=== PATIENT | female | born 1955 | race Caucasian/White ===

== ENCOUNTER 2016-12-20 09:39 | Outpatient (CLI) | payer OTHER ==
--- NOTE | 2016-12-22 12:12 | Mammography Report ---
DIGITAL BILATERAL SCREENING MAMMOGRAM: 12/20/2016 HISTORY: Asymptomatic 61-year-old female, indwelling saline implants. COMPARISON: 11/2012 TECHNIQUE: Bilateral CC, MLO and displaced views obtained. FINDINGS: Scattered fibroglandular tissue is present. No developing mass, distortion or pleomorphic calcifications. Bilateral indwelling implants are unchanged. ASSESSMENT: NEGATIVE. RECOMMENDATION: Routine screening is recommended annually. BIRADS category 1 - negative. STANDARD QUALIFYING STATEMENTS 1. This examination was reviewed with the aid of Computed-Aided Detection (CAD). 2. A negative or benign imaging report should not delay biopsy if clinically suspicious findings are present. Consider surgical consultation if warranted. More than 5% of cancers are not identified b y imaging. 3. Dense breasts may obscure an underlying neoplasm. JOB #: [id number] EXT JOB #:[id number]
== END 2016-12-20 09:40 | disposition home or self-care (01) ==
LOC: DI 09:39
PROVIDERS: ATTEND Internal Medicine
DX: Z12.31 Encounter for screening mammogram for malignant neoplasm of breast (principal); Z98.82 Breast implant status
CPT/HCPCS: 77067

== ENCOUNTER 2018-02-07 13:35 | Outpatient (CLI) | payer OTHER ==
[2018-02-07] MEDS ORDERED: IOPAMIDOL-300 100 ML VIAL ONE (13:45)
[2018-02-07] MEDS ORDERED: IOPAMIDOL-300 50 ML VIAL ONE (13:45)
[2018-02-07 14:11] LABS: CREATININE 0.7 mg/dL (0.4-1.0)
--- NOTE | 2018-02-07 16:15 | CT Report ---
Reason: DIARRHEA, ABD PAIN BLOATING, DYSURIA, BACK PAIN Procedure Date: 02/07/2018 Accession Number: [id number] / [id number] Procedure: CT - Abdomen/Pelvis W/ CPT Code: FULL RESULT: EXAM: CT ABDOMEN AND PELVIS EXAM DATE: 02/07/2018 03:29 PM. CLINICAL HISTORY: DIARRHEA, ABD PAIN BLOATING, DYSURIA, BACK PAIN. COMPARISONS: None. TECHNIQUE: Routine helical CT imaging was performed through the abdomen and pelvis. IV contrast: ISOVUE 300 100mL. Enteric contrast: No. Reconstructions: Coronal and sagittal. In accordance with CT protocol optimization, one or more of the following dose reduction techniques were utilized for this exam: automated exposure control, adjustment of mA and/or KV based on patient size, or use of iterative reconstructive technique. FINDINGS: Lung Bases: Subsegmental bibasilar atelectasis, greatest in right lower lobe posterior medially. Liver: Normal. No masses. Gallbladder/Bile Ducts: Unremarkable. Spleen: Unremarkable Pancreas: Unremarkable Adrenal Glands: Unremarkable Kidneys: Bilateral mild pelvocaliectasis. No radiopaque stone. Normal enhancement. No significant mass. Peritoneal Cavity/Bowel: Large volume of stool mixed with air throughout the colon from rectum through cecum. Mild cecal distention measuring up to 8 cm in diameter. No bowel obstruction. Appendix not seen. Stomach and small bowel appear unremarkable. No free intraperitoneal air. No free fluid. No adenopathy. Pelvic Organs: Postop change from hysterectomy. Urinary bladder unremarkable. No adnexal masses seen. Vasculature: No aneurysms or other significant abnormality. Bones: Lumbar postop change from fusion at L4-L5. No acute bone abnormality. No bone lesion suspicious for malignancy. Other: None. IMPRESSION: 1. Large volume of stool and air throughout the colon with mild cecal distention. No bowel obstruction. No gross wall thickening or inflammatory changes. No pneumatosis. No free fluid or free air. 2. No acute abdominal or pelvic abnormality otherwise seen on CT scan. Exam as detailed above. RADIA
[2018-02-07] MEDS ORDERED: IOPAMIDOL-300 50 ML VIAL PO ONE (17:15)
[2018-02-07] MEDS ORDERED: IOPAMIDOL-300 100 ML VIAL IVP ONE (17:15)
== END 2018-02-07 13:36 | disposition home or self-care (01) ==
LOC: LAB 13:35 → DI 13:36
PROVIDERS: ATTEND Nurse Practitioner Family
DX: M54.9 Dorsalgia, unspecified (principal); R19.7 Diarrhea, unspecified; R30.0 Dysuria; R14.0 Abdominal distension (gaseous)
CPT/HCPCS: 36415; 74177; 82565; Q9967

== ENCOUNTER 2018-04-05 10:16 | Day surgery (SDC) | payer MEDICARE, OTHER ==
[~2018-04-05 10:16] MED LIST: BRIMONIDINE 0.2% OPHTH DROPS 5 ML ONE; BSS/LIDOCAINE/EPINEPHRINE 1 ML SYRINGE ONE; TIMOLOL 0.5% OPHTH DROPS ONE; TRIAMCIN/MOXIFLOX OPHTHALMIC 0.6 ML VIAL IO ONE; VANCOMYCIN OPHTHALMI 8MG/0.8ML 8 MG/0.8 ML SYRINGE IO ONE
[2018-04-05] MEDS ORDERED: PHENYLEPHRINE 2.5% OPHTH 2 ML DROPS ONE (10:55)
[2018-04-05] MEDS ORDERED: KETOROLAC 0.45% OPHTH DROPS ONE (10:55)
[2018-04-05] MEDS ORDERED: PROPARACAINE 0.5% OPHTH DROPS 15 ML ONE ×2 (10:56→11:19)
[2018-04-05] MEDS ORDERED: CYCLOPENTOLATE 1% OPHTH DROPS 2 ML ONE (10:56)
--- NOTE | 2018-04-05 11:14 | ANESTHESIA ---
Pre-Anesthesia VS, & Labs - Diagnosis L senile combined cataract - Procedure L extraction cataract with IOL - NPO >8 hours - Is Patient ?: No Anes History & Medical History - Anesthetic History Anesthesia Complications: reports: No previous complications Family history of Anesthesia Complications: Denies Family history of Malignant Hyperthermia: Denies - Surgical History Eyes Ears Nose Throat (EENT): Tonsil/Adenoidectomy Gynecologic: Hysterectomy Exam General: Alert, Oriented x3, Cooperative Dental: WNL Mouth Opening: Greater than 4 Fingerbreadths Neck Mobility: Normal Mallampati classification: I Thyromental Distance: 4-6 cm Respiratory: Lungs clear, Normal breath sounds Cardiovascular: Regular rate Neurological: Normal speech Mental/Cognitive Status: Alert/Oriented X3, Normal for patient Plan Anesthesia Type: MAC Consent for Procedure(s) Verified and Reviewed: Yes Code Status: Attempt Resuscitation ASA classification: 2-Mild systemic disease Is this case an emergency?: No
[2018-04-05] MEDS ORDERED: CYCLOPENTOLATE 1% OPHTH DROPS 2 ML LEFTEYE ONE (11:25)
[2018-04-05] MEDS ORDERED: PHENYLEPHRINE 2.5% OPHTH 2 ML DROPS LEFTEYE ONE (11:25)
[2018-04-05] MEDS ORDERED: PROPARACAINE 0.5% OPHTH DROPS 15 ML LEFTEYE ONE ×2 (11:25→11:49)
[2018-04-05] MEDS ORDERED: KETOROLAC 0.45% OPHTH DROPS LEFTEYE ONE (11:25)
[2018-04-05] MEDS ORDERED: LACTATED RINGERS 1,000 ML IV ONE ×2 (11:36→11:38)
[2018-04-05] MEDS ORDERED: BRIMONIDINE 0.2% OPHTH DROPS 5 ML OPTH ONE (11:48)
[2018-04-05] MEDS ORDERED: CHONDR SULF/HYALURONATE SYRINGE IO ONE (11:48)
[2018-04-05] MEDS ORDERED: EPINEPHrine 1 MG/ML AMP IVP ONE (11:48)
[2018-04-05] MEDS ORDERED: TIMOLOL 0.5% OPHTH DROPS OPTH ONE (11:48)
[2018-04-05] MEDS ORDERED: TRIAMCIN/MOXIFLOX OPHTHALMIC 0.6 ML VIAL IO ONE ×2 (11:49)
[2018-04-05] MEDS ORDERED: BSS/LIDOCAINE/EPINEPHRINE 1 ML SYRINGE IO ONE ×2 (11:49)
[2018-04-05] MEDS ORDERED: MIDAZOLAM 2 MG/2 ML VIAL IVP ONE (12:00)
[2018-04-05 12:03] VITALS: BP 114/65
--- NOTE | 2018-04-05 12:23 | OPERATIVE REPORT ---
DATE OF SERVICE: 04/05/2018 Physician: Lukas Giordano MD PREOPERATIVE DIAGNOSIS: Visually significant cataract, left eye. This was her first cataract surgery. POSTOPERATIVE DIAGNOSIS: Visually significant cataract, left eye. PROCEDURE: Phacoemulsification with posterior chamber intraocular lens implant, left eye. SURGEON: Dr. Lukas Giordano. ANESTHESIA: Monitored anesthesia care. COMPLICATIONS: None. INDICATIONS FOR PROCEDURE: This is a 63-year-old woman with progressive vision loss in the left eye due to 1-2+ nuclear sclerotic and 3+ cortical cataract. Best corrected visual acuity was 20/30 with glare to 20/80 in the left eye. Indications for surgery are overall decrease in vision, difficulty seeing words, closed captions or g ace scores on TV, difficulty seeing street signs, difficulty driving in low light or at night, diffic ulty driving at night because of headlights from other vehicles and/or street lights, and difficulty with glare or bright lights in any situation. She was consented at length concerning the risks and b enefits of cataract surgery, after which she expressed a desire to proceed with surgery. OPERATIVE PROCEDURE: Patient was taken into OR #3 and placed under monitored anesthesia care. A brody gical timeout was conducted confirming correct patient, correct procedure, and correct surgical site. She was given topical anesthesia, then prepped and draped in the usual sterile fashion. The eye was entered at the 6 and 3 o'clock positions. Intracameral Shugarcaine was injected into the anterior chamber, followed by Viscoat. A continuous-tear curvilinear capsulorrhexis was performed. The nucleus was hydrodissected and phacoemulsified. The cortex was evacuated using automated infusi on and aspiration. Provisc was injected in the capsular bag, and a 22.0 diopter intraocular lens ins erted in the bag. Approximately 0.8 mL of a mixture of triamcinolone, moxifloxacin, and vancomycin w as injected subconjunctivally in the superior quadrant for infection and inflammation prophylaxis. I and A was used to evacuate the viscoelastic materials. The eye was inflated to physiologic pressure using a balanced salt solution and found to be watertight. Patient was taken from the operating laly m in good condition and given postoperative instructions. TD: 04/05/2018 12:10
== END 2018-04-05 10:17 | disposition home or self-care (01) ==
LOC: SDS 10:16
PROVIDERS: ATTEND Ophthalmology
PROC: 08RK3JZ Replacement of Left Lens with Synthetic Substitute, Percutaneous Approach (ICD-10-PCS; principal; 2018-04-05 11:30)
DX: H25.812 Combined forms of age-related cataract, left eye (principal); E03.9 Hypothyroidism, unspecified
CPT/HCPCS: 66984; A9270; J3490; J7120; V2632

== ENCOUNTER 2018-05-24 07:16 | Day surgery (SDC) | payer MEDICARE, OTHER ==
[2018-05-24] MEDS ORDERED: MIDAZOLAM 2 MG/2 ML VIAL IVP ONE (07:17)
[2018-05-24] MEDS ORDERED: LACTATED RINGERS 500 ML IV ONE (07:27)
[2018-05-24] MEDS ORDERED: PROPARACAINE 0.5% OPHTH DROPS 15 ML ONE (07:28)
[2018-05-24] MEDS ORDERED: CYCLOPENTOLATE 1% OPHTH DROPS 2 ML ONE (07:28)
[2018-05-24] MEDS ORDERED: PHENYLEPHRINE 2.5% OPHTH 2 ML DROPS ONE (07:28)
[2018-05-24] MEDS ORDERED: KETOROLAC 0.45% OPHTH DROPS ONE (07:28)
[2018-05-24] MEDS ORDERED: KETOROLAC 0.45% OPHTH DROPS RIGHTEYE ONE (07:32)
[2018-05-24] MEDS ORDERED: CYCLOPENTOLATE 1% OPHTH DROPS 2 ML RIGHTEYE ONE (07:32)
[2018-05-24] MEDS ORDERED: PHENYLEPHRINE 2.5% OPHTH 2 ML DROPS RIGHTEYE ONE (07:32)
[2018-05-24] MEDS ORDERED: PROPARACAINE 0.5% OPHTH DROPS 15 ML RIGHTEYE ONE (07:32)
--- NOTE | 2018-05-24 07:51 | ANESTHESIA ---
Pre-Anesthesia VS, & Labs - Diagnosis senile combined cataract right - Procedure right extraction cataract with lens implant Vital Signs: Temp Pulse Resp BP Pulse Ox 36.6 C 66 20 114/93 H 99 05/24/18 07:27 05/24/18 07:27 05/24/18 07:27 05/24/18 07:27 05/24/18 07:27 Height 5 ft 6 in Weight (kg) 60.6 kg - NPO >8 hours - Is Patient ?: Not Applicable Home Medications and Allergies Home Medications: Ambulatory Orders SUMAtriptan [Imitrex] 25 mg PO ONCE 05/24/18 Estropipate 0.75 mg PO DAILY 04/05/18 Levothyroxine [Synthroid] 112 mcg PO DAILY 04/05/18 NIFEdipine [Procardia Xl] 30 mg PO DAILY 04/05/18 SUMAtriptan succinate [Sumatriptan Succinate] 100 mg PO DAILY 04/05/18 SUMAtriptan [Imitrex] 25 mg PO ONCE 05/24/18 Allergies/Adverse Reactions: Allergies Allergy/AdvReac Type Severity Reaction Status Date / Time No Known Drug Allergies Allergy Verified 04/05/18 11:43 Anes History & Medical History - Anesthetic History Anesthesia Complications: reports: No previous complications Family history of Anesthesia Complications: Denies Family history of Malignant Hyperthermia: Denies - Medical History Cardiovascular: reports: Hypertension Pulmonary: reports: None Gastrointestinal: reports: None Urinary: reports: Chronic bladder infection Musculoskeletal: reports: None Endocrine/Autoimmune: reports: HyPOthyroidism Skin: reports: None - Surgical History Eyes Ears Nose Throat (EENT): Tonsil/Adenoidectomy Gynecologic: Hysterectomy Exam General: Alert Dental: Other (caps, implants) Mouth Openin Fingerbreadth Neck Mobility: Normal Mallampati classification: II Thyromental Distance: greater than 6 cm Respiratory: Lungs clear, Normal breath sounds, No respiratory distress, No accessory muscle use Cardiovascular: Regular rate, Normal S1, Normal S2, No murmurs Cognitive Status: Within normal limits Plan Anesthesia Type: MAC Consent for Procedure(s) Verified and Reviewed: No Code Status: Attempt Resuscitation ASA classification: 2-Mild systemic disease Is this case an emergency?: No
[2018-05-24] MEDS ORDERED: CHONDR SULF/HYALURONATE SYRINGE IO ONE (08:41)
[2018-05-24] MEDS ORDERED: TIMOLOL 0.5% OPHTH DROPS OPTH ONE (08:41)
[2018-05-24] MEDS ORDERED: BSS/LIDOCAINE/EPINEPHRINE 1 ML SYRINGE IO ONE (08:41)
[2018-05-24] MEDS ORDERED: EPINEPHrine 1 MG/ML AMP IVP ONE (08:41)
[2018-05-24] MEDS ORDERED: BRIMONIDINE 0.2% OPHTH DROPS 5 ML OPTH ONE (08:41)
[2018-05-24] MEDS ORDERED: TRIAMCIN/MOXIFLOX OPHTHALMIC 0.6 ML VIAL IO ONE (08:42)
[2018-05-24] MEDS ORDERED: VANCOMYCIN OPHTHALMI 8MG/0.8ML 8 MG/0.8 ML SYRINGE IO ONE (08:42)
[2018-05-24 08:53] VITALS: BP 115/69
--- NOTE | 2018-05-24 09:22 | OPERATIVE REPORT ---
DATE OF SERVICE: 05/24/2018 Physician: Lukas Giordano MD PREOPERATIVE DIAGNOSIS: Visually significant cataract, right eye. Cataract surgery was performed on the left eye on 04/05/2018. POSTOPERATIVE DIAGNOSIS: Visually significant cataract, right eye. Cataract surgery was performed o n the left eye on 04/05/2018. PROCEDURE: Phacoemulsification with posterior chamber intraocular lens implant, right eye. SURGEON: Lukas Giordano MD ANESTHESIA: Monitored anesthesia care. [employer]: COMPLICATIONS: None. OPERATIVE INDICATIONS: This is a 63-year-old woman with progressive vision loss in the right eye due to 1-2+ nuclear sclerotic, 2-3+ cortical and some anterior cortical cataract. Best corrected visual acuity was 20/30 with glare to 20/70 in the right eye. Indications for surgery were overall decreas e in vision, difficulty seeing words on the computer screen, difficulty reading and difficulty drivin g at night because of headlights from other vehicles, also difficulty with glare or bright lights in any situations. She was consented at length concerning risks and benefits of cataract surgery, after which she expressed a desire to proceed with surgery. OPERATIVE PROCEDURE: Patient was taken to OR #3 and placed under monitored anesthesia care. Surgica l timeout was conducted confirming correct patient, correct procedure, and correct surgical site. Sh e was given topical anesthesia, and prepped and draped in the usual sterile fashion. The eye was ent ered at the 12 and 9 o'clock position. Intracameral Shugarcaine was injected into the anterior chamb er, followed by Viscoat. A continuous-tear curvilinear capsulorrhexis was performed. The nucleus wa s hydrodissected and phacoemulsified. The cortex was evacuated using automated infusion and aspirati on. Provisc was injected in the capsular bag, and a 23.0 diopter intraocular lens was inserted in th e bag. Approximately 0.8 mL of a mixture of triamcinolone, moxifloxacin and vancomycin was injected subconjunctivally in the superior quadrant for infection and inflammation prophylaxis. I and A was u sed to evacuate the viscoelastic materials. The eye was inflated to physiologic pressure using a bal anced salt solution and found to be watertight. Patient was taken from the operating room in good co ndition and given postoperative instructions. TD: 05/24/2018 09:07
== END 2018-05-24 07:17 | disposition home or self-care (01) ==
LOC: SDS 07:16
PROVIDERS: ATTEND Ophthalmology
PROC: 08RJ3JZ Replacement of Right Lens with Synthetic Substitute, Percutaneous Approach (ICD-10-PCS; principal; 2018-05-24 08:30)
DX: H25.811 Combined forms of age-related cataract, right eye (principal); E03.9 Hypothyroidism, unspecified; I73.00 Raynaud's syndrome without gangrene
CPT/HCPCS: 66984; A9270; J3490; V2632

== ENCOUNTER 2020-09-22 17:09 | Outpatient (CLI) | payer MEDICARE, OTHER ==
[2020-09-22 20:04] LABS: BILIRUBIN,URINE NEGATIVE (NEGATIVE); CLARITY,URINE CLEAR (CLEAR); GLUCOSE, URINE (UA) NEGATIVE (NEGATIVE); KETONES,URINE (UA) NEGATIVE (NEGATIVE); LEUKOCYTE ESTERASE, URINE TRACE (NEGATIVE); NITRITE,URINE NEGATIVE (NEGATIVE); OCCULT BLOOD,URINE NEGATIVE (NEGATIVE); PH,URINE 5.5 PH (5.0-7.5); PROTEIN,URINE NEGATIVE (NEGATIVE); UROBILINOGEN,URINE 0.2 (NORMAL) E.U./dL (NORMAL)
[2020-09-22 20:11] LABS: BACTERIA,URINE Moderate /HPF (None Seen); RBC,URINE None Seen /HPF (0-5); SQUAMOUS EPITHELIAL CELL,UR RARE Squamous (<= Few)
== END 2020-09-22 17:10 | disposition home or self-care (01) ==
LOC: LAB.S 17:09
PROVIDERS: ATTEND Urology
DX: N39.0 Urinary tract infection, site not specified (principal)
CPT/HCPCS: 81001; 87086; 87181

== ENCOUNTER 2020-10-19 13:32 | Outpatient (CLI) | payer MEDICARE, OTHER ==
[2020-10-19 15:20] LABS: BILIRUBIN,URINE NEGATIVE (NEGATIVE); GLUCOSE, URINE (UA) NEGATIVE (NEGATIVE); KETONES,URINE (UA) NEGATIVE (NEGATIVE); LEUKOCYTE ESTERASE, URINE LARGE (NEGATIVE); NITRITE,URINE POSITIVE (NEGATIVE); OCCULT BLOOD,URINE TRACE-INTA (NEGATIVE); PROTEIN,URINE 100 mg/dL (NEGATIVE); UROBILINOGEN,URINE 2 E.U./dL (NORMAL)
[2020-10-19 16:02] LABS: BACTERIA,URINE Moderate /HPF (None Seen); CLARITY,URINE CLOUDY (CLEAR); EPITHELIAL CELLS,UR RARE Transitional /HPF (<= Few); RBC,URINE 0-5 /HPF (0-5); SQUAMOUS EPITHELIAL CELL,UR FEW Squamous (<= Few); WBC,URINE >25 /HPF (0-5)
== END 2020-10-19 13:33 | disposition home or self-care (01) ==
LOC: LAB.S 13:32
PROVIDERS: ATTEND Urology
DX: N39.0 Urinary tract infection, site not specified (principal)
CPT/HCPCS: 81001; 87086; 87181

== ENCOUNTER 2021-02-01 12:12 | Outpatient (CLI) | payer MEDICARE, OTHER ==
[2021-02-01 15:20] LABS: GLUCOSE, URINE (UA) NEGATIVE (NEGATIVE); KETONES,URINE (UA) NEGATIVE (NEGATIVE)
[2021-02-01 15:30] LABS: CLARITY,URINE CLOUDY (CLEAR)
[2021-02-01 15:31] LABS: BILIRUBIN,URINE COLOR INTERFERENCE (NEGATIVE)
[2021-02-01 15:32] LABS: BACTERIA,URINE Many /HPF (None Seen); RBC,URINE 0-5 /HPF (0-5); SQUAMOUS EPITHELIAL CELL,UR FEW Squamous (<= Few); WBC,URINE >25 /HPF (0-5)
== END 2021-02-01 12:13 | disposition home or self-care (01) ==
LOC: LAB.S 12:12
PROVIDERS: ATTEND Urology
DX: N39.0 Urinary tract infection, site not specified (principal)
CPT/HCPCS: 81001; 81003; 87086; 87181

== ENCOUNTER 2021-09-16 14:38 | Outpatient (CLI) | payer MEDICARE, OTHER ==
[2021-09-18 19:07] LABS: ANTI-DNA (DS) AB QN <1 IU/mL (0-9); CENTROMERE B ANTIBODIES <0.2 AI (0.0-0.9); CHROMATIN ANTIBODIES <0.2 AI (0.0-0.9); JO-1 AB <0.2 AI (0.0-0.9); RIBOSOMAL P ANTIBODIES <0.2 AI (0.0-0.9); RNP ANTIBODIES <0.2 AI (0.0-0.9); SCLERODERMA-70 ANTIBODIES <0.2 AI (0.0-0.9); SJOGREN'S ANTI-SS-A >8.0 AI (0.0-0.9); SJOGREN'S ANTI-SS-B 0.6 AI (0.0-0.9); SMITH ANTIBODIES <0.2 AI (0.0-0.9); SMITH/RNP ANTIBODIES <0.2 AI (0.0-0.9)
== END 2021-09-16 14:39 | disposition home or self-care (01) ==
LOC: LAB.S 14:38
PROVIDERS: ATTEND Dermatology
DX: L30.9 Dermatitis, unspecified (principal)
CPT/HCPCS: 36415; 86225; 86235

== ENCOUNTER 2022-04-22 14:52 | Outpatient (CLI) | payer MEDICARE, OTHER ==
[2022-04-22 21:24] LABS: CLARITY,URINE HAZY (CLEAR)
[2022-04-22 22:13] LABS: AMORPHOUS SEDIMENT,UR Few /LPF; BACTERIA,URINE Moderate /HPF (None Seen); CRYSTALS,URINE 3-5 Calcium Oxalate /LPF; RBC,URINE 0-5 /HPF (0-5); SQUAMOUS EPITHELIAL CELL,UR NONE SEEN (<= Few)
== END 2022-04-22 14:53 | disposition home or self-care (01) ==
LOC: LAB.S 14:52
PROVIDERS: ATTEND Urology
DX: N39.0 Urinary tract infection, site not specified (principal)
CPT/HCPCS: 81001; 81003; 87086

== ENCOUNTER 2023-08-22 13:22 | Outpatient (CLI) | payer MEDICARE, OTHER | END 2023-08-22 13:23 | disposition home or self-care (01) | LOC: LAB.S 13:22 | PROVIDERS: ATTEND Orthopaedic Surgery | DX: B99.9 Unspecified infectious disease (principal); G89.18 Other acute postprocedural pain; M54.9 Dorsalgia, unspecified | CPT/HCPCS: 36415; 86140 ==